=== PATIENT | male | born 1995 | race Caucasian/White ===

== ENCOUNTER 2019-08-23 23:50 | Emergency (ER) | payer MEDICAID ==
[2019-08-24] MEDS ORDERED: TORAdol 30 mg Injection IM ONE (00:06)
--- NOTE | 2019-08-24 00:06 | ERPHSYRPT ---
- History of Present Illness Time Seen by Provider: 08/23/19 23:58 Source: patient Exam Limitations: no limitations Physician History: For the past 2 weeks pt has had right lower back/hip pain radiating to the right foot without numbness; denies fever, cough, chest pain, vomiting. Allergies/Adverse Reactions: cefaclor [From Ceclor] Allergy (Mild, Verified 09/27/13 05:11) Rash Hx Influenza Vaccination/Date Given: No Hx Pneumococcal Vaccination/Date Given: No - Review of Systems Constitutional: No Fever Respiratory: No Cough Cardiac: No Chest Pain Abdominal/Gastrointestinal: No Vomiting Musculoskeletal: Back Pain All Other Systems: Reviewed and Negative - Past Medical History Pertinent Past Medical History: Yes Neurological History: No Pertinent History ENT History: No Pertinent History Cardiac History: No Pertinent History Respiratory History: No Pertinent History Endocrine Medical History: No Pertinent History Musculoskeletal History: Fractures GI Medical History: No Pertinent History History: No Pertinent History Psycho-Social History: Attention Deficit Disorder, Other Other Medical History: ODD - Past Surgical History Past Surgical History: Yes Musculoskeletal: Other Other Surgical History: ANKLE INJURY - Social History Smoking Status: Current every day smoker Exposure to second hand smoke: Yes Drug Use: none Patient Lives Alone: No - Physical Exam General Appearance: alert Eye Exam: PERRL/EOMI Ears, Nose, Throat Exam: TMs normal, pharynx normal Neck Exam: normal inspection Respiratory Exam: No respiratory distress Cardiovascular Exam: normal heart sounds Gastrointestinal Exam: normal bowel sounds Back Exam: normal range of motion, No vertebral tenderness Extremity Exam: normal inspection, normal range of motion Peripheral Pulses: dorsalis-pedis (R): 2+, dorsalis-pedis (L): 2+ Neurologic Exam: alert, cooperative, normal mood/affect, sensation nml, No motor deficits, No motor weakness Skin Exam: warm, dry - Departure Departure Disposition: Home Clinical Impression: Sciatica Condition: Stable Critical Care Time: No Referrals: REGGIE LEONG MD [Primary Care Provider] - Instructions: Sciatica (DC) Additional Instructions: Follow up with private doctor tomorrow. Prescriptions: Naproxen [Naprosyn] 500 mg PO [id number] PRN #20 tablet PRN Reason: Pain
[2019-08-24] MEDS ORDERED: TORAdol 30 mg Injection ONE (00:09)
[2019-08-24 00:24] VITALS: BP 131/77; PULSE 76; O2SAT 98
== END 2019-08-24 00:26 | disposition home or self-care (01) ==
LOC: ED 23:50
DX: M54.30 Sciatica, unspecified side (principal)
CPT/HCPCS: 96372; 99283; J1885

== ENCOUNTER 2021-12-24 17:57 | Emergency (ER) | payer MEDICAID, OTHER ==
[2021-12-24 18:08] VITALS: O2SAT 98
[2021-12-24] MEDS ORDERED: Sodium Chloride 0.9% 1000 ML 1,000 ML IV STA (18:10)
[2021-12-24] MEDS ORDERED: TYLENOL 325 MG PO ONE (18:10)
[2021-12-24] MEDS ORDERED: solu-MEDROL 125 MG, Sterile H2O 10 ml 2 ML IV ONE ×2 (18:10)
[2021-12-24] MEDS ORDERED: TORAdol 30 mg Injection IV ONE (18:12)
[2021-12-24 18:28] LABS: Absolute Neutrophil Ct (ANC) 2.03 x10^3/uL (1.4-6.9); Basophil (Absolute #) 0 x10^3/uL (0-0.4); Eosinophil (Absolute #) 0 x10^3/uL (0-0.5); Hematocrit 40.7 % (42-50); Hemoglobin 14.2 g/dL (12.5-18.0); Lymphocyte (Absolute #) 0.51 x10^3/uL (1.0-4.6); Lymphocytes % 16.6 % (24.0-44.0); Mean Cell Volume 88.7 fL (78-100); Mean Corpuscular Hemoglobin 30.9 pg (26-32); Mean Corpuscular Hgb Concent. 34.9 g/dL (32-36); Mean Platelet Volume 9.7 fL (7.5-11.0); Monocyte (Absolute #) 0.52 x10^3/uL (0.0-1.3); Monocytes % 16.9 % (0.0-12.0); Neutrophil % 66.2 % (36.0-66.0); Platelet Count 160 x10^3/uL (150-450); Red Blood Count 4.59 x10^6/uL (4.1-5.6); Red Cell Distribution Width 12.1 % (11.5-14.0); White Blood Count 3.1 x10^3/uL (4.0-10.5)
--- NOTE | 2021-12-24 18:29 | ERPHSYRPT ---
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 nausea at times Triage Nursing Assessment: pt alert, walked in, resp easy, skin w/d/p,face mask in place, no edema noted ,no cough Physician History: Patient here with fever. No cough cold congestion. Patient has aches and fever with nausea. He is unvaccinated against COVID. He is sexually active with 1 partner. He denies any chance for STDs. No falls or other trauma. Patient states that he has been feeling poorly for 2 to 3 days. He has not seen his P CP. He has not taken any home COVID test. 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 Associated Symptoms: nausea/vomiting Allergies/Adverse Reactions: cefaclor [From Ceclor] Allergy (Mild, Verified 12/24/21 18:09) Rash Hx Tetanus, Diphtheria Vaccination/Date Given: No Hx Influenza Vaccination/Date Given: No Hx Pneumococcal Vaccination/Date Given: No Immunizations Up to Date: Yes Travel Risk - International Travel Have you traveled outside of the country in past 3 weeks: No - Coronavirus Screening Are you exhibiting any of the following symptoms?: Yes Symptoms: Fever, Headaches/Body Aches/Fatigue Close contact with a COVID-19 positive Pt in past 14-21 Days: No - Vaccine Status Have you recieved a Covid-19 vaccination: No - Review of Systems Constitutional: Fever, Chills Eyes: No Symptoms Ears, Nose, & Throat: No Symptoms, Other Respiratory: No Cough, No Dyspnea Cardiac: No Chest Pain, No Edema, No Syncope Abdominal/Gastrointestinal: No Abdominal Pain, No Nausea, No Vomiting, No Diarrhea Genitourinary Symptoms: No Dysuria Musculoskeletal: No Back Pain, No Neck Pain Skin: No Rash Neurological: No Dizziness, No Focal Weakness, No Sensory Changes Psychological: No Symptoms Endocrine: No Symptoms All Other Systems: Reviewed and Negative - Past Medical History Pertinent Past Medical History: Yes Neurological History: No Pertinent History ENT History: No Pertinent History Cardiac History: No Pertinent History Respiratory History: No Pertinent History Endocrine Medical History: No Pertinent History Musculoskeletal History: Fractures GI Medical History: No Pertinent History History: No Pertinent History Psycho-Social History: Attention Deficit Disorder, Other Other Medical History: ODD - Past Surgical History Past Surgical History: Yes Musculoskeletal: Other Other Surgical History: ANKLE INJURY - Social History Smoking Status: Current every day smoker How long have you smoked: 7-8yrs Exposure to second hand smoke: Yes Drug Use: marijuana Patient Lives Alone: No - Nursing Vital Signs Nursing Vital Signs: Initial Vital Signs Temperature 100.5 F 12/24/21 17:59 Pulse Rate 92 H 12/24/21 17:59 Respiratory Rate 18 12/24/21 17:59 Blood Pressure 151/86 12/24/21 17:59 O2 Sat by Pulse Oximetry 98 12/24/21 17:59 Pain Scale Pain Intensity 0 - Physical Exam General Appearance: no apparent distress, alert Eye Exam: PERRL/EOMI ENT Exam: normal ENT inspection, No pharyngeal erythema, No tonsillar exudate Neck Exam: supple, full range of motion, No meningismus Respiratory Exam: normal breath sounds, lungs clear, no respiratory distress Cardiovascular/Chest Exam: normal heart sounds, regular rate/rhythm, No murmur, No edema Gastrointestinal/Abdominal Exam: soft, non tender, no distention Extremity Exam: non-tender, normal range of motion, normal inspection, normal capillary refill Neurologic Exam: alert, oriented x 3, 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 Full range of motion at his neck and other joints. Low suspicion for encephalitis. No altered mental status. No other falls or signs of trauma. - Course Nursing assessment & vital signs reviewed: Yes EKG Interpreted by Me: Sinus Rhythm Ordered Tests: Active Orders 24 hr Category Date Time Status EKG-ER Only STAT Care 12/24/21 18:10 Active IV Insertion STAT Care 12/24/21 18:10 Active CHEST 1 VIEW (PORTABLE) Stat Exams 12/24/21 18:11 Ordered CBC W DIFF Stat Lab 12/24/21 18:10 Ordered CMP Stat Lab 12/24/21 18:10 Ordered COVID AG-BINAX NOW RAPID TEST Stat Lab 12/24/21 18:13 Ordered INFLUENZA A+B NICOLE Stat Lab 12/24/21 18:10 Ordered PROCALCITONIN Stat Lab 12/24/21 Ordered UA W/RFX CULTURE Stat Lab 12/24/21 Ordered Medication Summary Generic Name Dose Route Start Last Admin Trade Name Latosha PRN Reason Stop Dose Admin Sodium Chloride 1,000 mls @ 999 mls/hr 12/24/21 18:10 Sodium Chloride 0.9% 1000 Ml IV 12/24/21 19:10 .[id number] STA Discontinued Medications Generic Name Dose Route Start Last Admin Trade Name Latosha PRN Reason Stop Dose Admin Acetaminophen 975 mg 12/24/21 18:10 Acetaminophen 325 Mg Tablet PO 12/24/21 18:11 STAT ONE Methylprednisolone Sodium 0 mg 12/24/21 18:10 Succinate 125 mg/ Sterile IV 12/24/21 18:11 Water 2 ml STAT ONE Ketorolac Tromethamine 30 mg 12/24/21 18:12 Ketorolac Tromethamine 30 Mg/Ml Inj IV 12/24/21 18:13 STAT ONE - Progress Progress: improved Progress Note: 12/24/21 18:28 Patient will need swab for COVID, labs, fluids. We will obtain a chest x-ray, rapid fluids well. Patient handoff at [address] Lewis. He will follow-up closely on labs and imaging, repeat exams and decide disposition of patient. - Departure Clinical Impression: Fever, Body aches Condition: Stable Critical Care Time: No Referrals: REGGIE LEONG MD [Primary Care Provider] - Follow up/PCP as directed
[2021-12-24] MEDS ORDERED: Sterile H2O 10 ml IJ ONE (18:30)
[2021-12-24] MEDS ORDERED: TORAdol 30 mg Injection ONE (18:30)
[2021-12-24] MEDS ORDERED: Sodium Chloride 0.9% 1000 ML 1,000 ML ONE (18:31)
[2021-12-24] MEDS ORDERED: solu-MEDROL ONE (18:31)
[2021-12-24] MEDS ORDERED: TYLENOL 325 MG ONE (18:31)
[2021-12-24 18:39] LABS: ALBUMIN 4.4 g/dL (3.5-5.0); ALKALINE PHOSPHATASE 64 U/L (38-126); ANION GAP 13.8 MEQ/L (5-15); BLOOD UREA NITROGEN 12 mg/dL (9-20); CHLORIDE 106 mmol/L (98-107); Calcium 9.3 mg/dL (8.4-10.2); Carbon Dioxide 20 mmol/L (22-30); Creatinine 1 0.96 mg/dL (0.66-1.25); EST GLOMERULAR FILTRATION RATE > 60.0 ML/MIN; Glucose 117 mg/dL (74-106); Potassium 3.2 mmol/L (3.5-5.1); SGOT/AST 26 U/L (17-59); SGPT/ALT 17 U/L (0-50); SODIUM 137 mmol/L (137-145); Total Protein 7.1 g/dL (6.3-8.2)
[2021-12-24] MEDS ORDERED: Klor Con PO ONE ×2 (19:02→19:15)
[2021-12-24 19:07] LABS: INFLUENZA A NEGATIVE (NEGATIVE); INFLUENZA B NEGATIVE (NEGATIVE); RESPIRATORY SYNCTIAL VIRUS NEGATIVE (Negative)
[2021-12-24] MEDS ORDERED: Magnesium 1 Gm / 100 Ml D5W*** 200 ML IV ONE (19:14)
[2021-12-24] MEDS ORDERED: Magnesium 1 Gm / 100 Ml D5W*** 100 ML IV SCH (19:15)
[2021-12-24 19:16] LABS: SARS-CoV-2 Xpert Express POSITIVE (NEGATIVE)
[2021-12-24 19:28] VITALS: BP 136/89; PULSE 66
--- NOTE | 2021-12-25 08:50 | XRAY ---
Indication: Fever and bodyaches. Pneumonia. Comparison: None Portal chest demonstrates normal heart, lungs, and bony thorax.
== END 2021-12-24 20:36 | disposition home or self-care (01) ==
LOC: ED 17:57
DX: U07.1 COVID-19 (principal); E87.6 Hypokalemia; R50.9 Fever, unspecified; M79.10 Myalgia, unspecified site; R11.0 Nausea; Z72.0 Tobacco use; Z28.310 Unvaccinated for COVID-19
CPT/HCPCS: 0241U; 36000; 36415; 71045; 80053; 84145; 85025; 93005; 96360; 96365; 96374; 96375; 99285; J1885; J2930; J3475; A9270-GY

== ENCOUNTER 2024-11-17 22:52 | Emergency (ER) | payer OTHER ==
[2024-11-17 23:03] VITALS: RESP 18; O2SAT 100
--- NOTE | 2024-11-17 23:07 | ERPHSYRPT ---
- History of Present Illness Source: patient Exam Limitations: no limitations Patient Subjective Stated Complaint: c/o left sided mouth and tooth pain Triage Nursing Assessment: Patient brought to ED by sudeep with c/o left sided mouth pain that started 2 days ago. patient states he hasn't seen a dentist because they are trying to find one that covers their insurance. patient states that hes got pain in 3 of his lower left side, and one tooth in left upper side. vitals wnl, skin w/n/d, gait steady, patient doesn't appear to be in any distress at this time Physician History: Patient has mouth pain.He has cavities that occasionally bother him. There is no evidence of abscess or infection. He does not have a dentist at this time. Nothing makes symptoms better. Eating chewing makes it worse. He has no other complaints.He has no Ludewig's angina or trismus. Allergies/Adverse Reactions: cefaclor [From Ceclor] Allergy (Mild, Verified 11/17/24 22:54) Rash Hx Tetanus, Diphtheria Vaccination/Date Given: No Hx Influenza Vaccination/Date Given: No Hx Pneumococcal Vaccination/Date Given: No Travel Risk - International Travel Have you traveled outside of the country in past 3 weeks: No - Emerging Infectious Disease Are you exhibiting symptoms associated with any current EIDs: No - Review of Systems Constitutional: No Symptoms Eyes: No Symptoms Respiratory: No Symptoms - Past Medical History Pertinent Past Medical History: Yes Neurological History: No Pertinent History ENT History: No Pertinent History Cardiac History: No Pertinent History Respiratory History: No Pertinent History Endocrine Medical History: No Pertinent History Musculoskeletal History: Fractures GI Medical History: No Pertinent History History: No Pertinent History Psycho-Social History: Attention Deficit Disorder, Other Other Medical History: ODD - Past Surgical History Past Surgical History: Yes Neuro Surgical History: No Pertinent History Cardiac: No Pertinent History Respiratory: No Pertinent History Gastrointestinal: No Pertinent History Genitourinary: No Pertinent History Musculoskeletal: Other Male Surgical History: No Pertinent History Other Surgical History: LEFT ANKLE INJURY, WISDOM TEETH - Social History Smoking Status: Current every day smoker How long have you smoked: 7-8yrs Exposure to second hand smoke: Yes Drug Use: marijuana - Social Determinants of Health Will the patient participate in the screening: Yes Do you worry about a steady place to live?: No Do you have any problems with any of the following?: No known problems In the past 12 months,have you had to go without utilities?: No Transportation Issues: No Has anyone in your support network made you feel unsafe?: No Have you or anyone in your house had to go w/o enough food: No - Nursing Vital Signs Nursing Vital Signs: Initial Vital Signs Pulse Rate 88 11/17/24 22:54 Respiratory Rate 18 11/17/24 22:54 Blood Pressure 126/95 11/17/24 22:54 O2 Sat by Pulse Oximetry 100 11/17/24 22:54 Pain Scale Pain Intensity 10 - Physical Exam General Appearance: no apparent distress Nasal Exam: normal inspection Throat Exam: normal, pharynx normal, dental tenderness (In his upper left teeth. There is no abscesses or erythema. His pharynx is patent. There is no swelling of the floor of his mouth. He has a patent airway.) Neck Exam: normal inspection, non-tender, supple, trachea midline Skin Exam: normal color SpO2: 100 - Progress Progress: unchanged Progress Note: Patient was stable throughout stay. At this time I do not think he needs antibiotics. When to have him do ice packs and give him some ibuprofen and [place]. He is to follow-up with a dentist. 11/17/24 23:06 - Departure Departure Disposition: Home Clinical Impression: Pain due to dental caries Condition: Stable Critical Care Time: No Referrals: REGGIE LEONG MD [Primary Care Provider, [facility]] - Follow up/PCP as directed Instructions: Tooth Decay ED
[2024-11-17] MEDS ORDERED: MOTRIN 600 MG ONE (23:12)
[2024-11-17] MEDS ORDERED: NORCO 5/325 MG ONE (23:12)
[2024-11-17] MEDS: NORCO 5/325 MG PO ONE ×2 (23:13→23:14)
[2024-11-17] MEDS: MOTRIN 600 MG PO ONE (23:14)
[2024-11-17 23:23] VITALS: BP 154/89; PULSE 63
== END 2024-11-17 23:23 | disposition home or self-care (01) ==
LOC: ED 22:52
DX: K02.9 Dental caries, unspecified (principal); K08.89 Other specified disorders of teeth and supporting structures; Z79.891 Long term (current) use of opiate analgesic; Z79.899 Other long term (current) drug therapy; Z72.0 Tobacco use
CPT/HCPCS: 99282; 99283; A9270-GY